=== PATIENT | female | born 1940 | race Caucasian/White ===

== ENCOUNTER 2017-07-19 07:39 | Day surgery (SDC) | payer MEDICARE, OTHER ==
[~2017-07-19] VITALS: Ht 160 cm; Wt 106.6 kg
[~2017-07-19 07:39] MED LIST: ACETAMINOPHEN P1 TA2 PO; ADVAIR DISK1 INH; ALLEGRA60 MG PO; ALLOPURINOL100 MG PO; BACLOFEN10 MG PO; D3 ULTRA ST5000 UNIT PO; L-THYROXINE PO; PRILOSEC20 MG/CAP PO; PROAIR HFA IN; SIMVASTATIN40 MG PO; SPIRIVA HANDIHALER IN; TYLENOL 500MG TAB PO
[2017-07-19 10:57] VITALS: BP 128/60
== END 2017-07-19 10:43 | disposition home or self-care (01) ==
LOC: ENDO 07:39 → ORM 13:00 → ENDO 13:00 → ORM 13:30
PROVIDERS: ATTEND Internal Medicine Gastroenterology
PROC: 0DBK8ZX Excision of Ascending Colon, Via Natural or Artificial Opening Endoscopic, Diagnostic (ICD-10-PCS; principal; 2017-07-19)
PROC: 0DBP8ZX Excision of Rectum, Via Natural or Artificial Opening Endoscopic, Diagnostic (ICD-10-PCS; 2017-07-19)
PROC: 0DBF8ZX Excision of Right Large Intestine, Via Natural or Artificial Opening Endoscopic, Diagnostic (ICD-10-PCS; 2017-07-19)
DX: R19.7 Diarrhea, unspecified (principal); K62.1 Rectal polyp; K64.4 Residual hemorrhoidal skin tags; K64.8 Other hemorrhoids; K57.30 Diverticulosis of large intestine without perforation or abscess without bleeding; R23.8 Other skin changes; K21.9 Gastro-esophageal reflux disease without esophagitis; I25.10 Atherosclerotic heart disease of native coronary artery without angina pectoris; E78.00 Pure hypercholesterolemia, unspecified; I25.2 Old myocardial infarction; J45.909 Unspecified asthma, uncomplicated; E03.9 Hypothyroidism, unspecified; Z80.0 Family history of malignant neoplasm of digestive organs; Z86.010 Personal history of colon polyps; D12.2 Benign neoplasm of ascending colon